=== PATIENT | male | born 2000 | race Asian ===

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

== ENCOUNTER 2022-07-17 17:13 | Emergency (ER) | payer OTHER ==
[~2022-07-17] VITALS: Ht 182.9 cm; Wt 81.6 kg
[2022-07-17 17:18] VITALS: BP 142/73; TEMP 98.2
== END 2022-07-17 18:11 | disposition home or self-care (01) ==
LOC: ED 17:13
DX: H60.8X2 Other otitis externa, left ear (principal)
CPT/HCPCS: 99282